=== PATIENT | female | born 1980 | race Caucasian/White ===

== ENCOUNTER 2020-07-21 18:47 | Emergency (ER) | payer OTHER ==
[~2020-07-21] VITALS: Ht 180.3 cm; Wt 165.6 kg
[2020-07-21] MEDS ORDERED: ALLEGRA ALLERGY60 MG PO (19:01)
[2020-07-21] MEDS ORDERED: LISINOPRIL10 MG PO (19:01)
[2020-07-21] MEDS ORDERED: PROZAC20 MG PO (19:02)
[2020-07-21] MEDS ORDERED: OMEPRAZOLE40 MG PO (19:02)
[2020-07-21 19:39] LABS: URINE BILIRUBIN NEGATIVE (Negative); URINE BLOOD NEGATIVE (Negative); URINE CLARITY CLEAR; URINE COLOR YELLOW; URINE GLUCOSE-RANDOM NEGATIVE (Negative); URINE KETONES NEGATIVE (Negative); URINE LEUKOCYTES-REFLEX NEGATIVE (Negative); URINE NITRITE-REFLEX NEGATIVE (Negative); URINE PROTEIN NEGATIVE (Negative)
[2020-07-21 19:52] LABS: ABSOLUTE EOSINOPHILS 0.1 thou/uL (0.0-0.7); ABSOLUTE LYMPHOCYTES 1.6 thou/uL (0.8-5.3); ABSOLUTE MONOCYTES 0.3 thou/uL (0.0-1.2); ABSOLUTE NEUTROPHILS 3.2 thou/uL (1.6-8.1); BASOPHILS 0.9 %; EOSINOPHILS 1.9 %; HEMATOCRIT 43.4 % (37.0-47.0); HEMOGLOBIN 14.5 gm/dL (12.0-15.0); LYMPHOCYTES 30.6 %; MCH 30.1 pg (26.0-34.0); MCHC 33.4 g/dL (28.0-37.0); MCV 90.3 fL (80.0-100.0); MPV 7.9 fl. (7.2-11.1); NUCLEATED RBCS 0 /100WBC; PLATELET COUNT* 204 thou/uL (150-400); POLYS 60.6 %; RBC 4.81 mil/uL (4.20-5.00); RDW-CV 14.8 % (10.5-14.5); WBC 5.3 thou/uL (4.0-11.0)
[2020-07-21 20:01] LABS: CALCIUM 8.8 mg/dL (8.5-10.1); CREATININE 0.7 mg/dL (0.6-1.3); POTASSIUM 3.9 mmol/L (3.5-5.1)
[2020-07-21 20:04] LABS: PROTIME 10.3 Seconds (9.20-11.50)
[2020-07-21 20:12] LABS: ALBUMIN 3.4 g/dL (3.4-5.0); MAGNESIUM 2.4 mg/dL (1.8-2.4); TOTAL BILIRUBIN 0.4 mg/dL (<0.1-1.0); TOTAL PROTEIN 7.3 g/dL (6.4-8.2)
[2020-07-21] MEDS ORDERED: SPACERADULT INH (22:36)
[2020-07-21] MEDS ORDERED: PROAIR HFA8.5 GM INH (22:36)
[2020-07-21] MEDS ORDERED: LEVAQUIN 500 M500 MG PO (22:36)
[2020-07-21] MEDS ORDERED: ZOFRAN ODT4 MG PO (22:36)
[2020-07-21 22:47] VITALS: BP 126/77
--- NOTE | 2020-07-22 11:51 | EKG ---
[place] [address] ELECTROCARDIOGRAM REPORT Name: ARELYLANCE Gabbi Room: [facility]#: [id number] Admission: 07/21/20 Attend Phys: Discharge: 07/21/20 Date of : 82 Date of Service: 07/21/201852 Report #: [id number] THIS REPORT FOR: //name// [facility] ED Test Date: 2020-07-21 Test Time: 18:53:59 Pat Name: LANCE MCGEE Department: Room: Gender: [place]ception[place]: [place] : 1980 Requested By: Radha Pyle Order Number: [id number] MD: Harry Harris Measurements Intervals [place] Rate: 89 P: 60 OK: 151 QRS: 17 QRSD: 92 T: 13 QT: 359 QTc: 437 Interpretive Statements Sinus rhythm Probable left atrial enlargement No previous ECG available for comparison Electronically Signed On 07-22-2020 11:50:56 [employer] by Harry Harris [email or web address] <ELECTRONICALLY SIGNED> By: Harry Harris MD, [facility] 07/22/20 1150 52 52 Harry Harris MD, FACC /EPI
== END 2020-07-21 22:51 | disposition home or self-care (01) ==
LOC: M.ERS 18:47
PROVIDERS: Emergency Medicine
DX: U07.1 COVID-19 (principal); J18.9 Pneumonia, unspecified organism; R06.00 Dyspnea, unspecified; I10 Essential (primary) hypertension; Z88.1 Allergy status to other antibiotic agents